=== PATIENT | female | born 1935 | race Caucasian/White ===

== ENCOUNTER 2017-04-14 08:35 | Emergency (ER) | payer OTHER ==
[~2017-04-14 08:35] MED LIST: ACTONEL PO; ASPIR LOW81 MG PO; BACTRIM1 TAB PO; COLACE100 MG PO; LEVAQUIN750 MG PO; LOP600 PO; MAC100 PO; MOTRIN800 MG PO; NOR10T PO; PROT40I PO; ROBAXIN-750750 MG GT; ROBAXIN-750750 MG PO; SYN88 PO; TYLENOL WITH CO1 TA2 PO; ZES20 PO
[2017-04-14 12:00] VITALS: BP 137/94
== END 2017-04-14 12:00 | disposition home or self-care (01) ==
LOC: ED 08:35
DX: M54.5 Low back pain (principal); N39.0 Urinary tract infection, site not specified; I10 Essential (primary) hypertension; M81.0 Age-related osteoporosis without current pathological fracture; E03.9 Hypothyroidism, unspecified; M19.90 Unspecified osteoarthritis, unspecified site; K21.9 Gastro-esophageal reflux disease without esophagitis; Z88.0 Allergy status to penicillin; Z88.5 Allergy status to narcotic agent; Z88.1 Allergy status to other antibiotic agents; Z95.0 Presence of cardiac pacemaker; Z87.81 Personal history of (healed) traumatic fracture
CPT/HCPCS: J3010